=== PATIENT | male | born 1965 | race Caucasian/White ===

== ENCOUNTER 2021-01-29 13:23 | Outpatient (CLI) | payer OTHER | END 2021-01-29 23:59 | disposition home or self-care (01) | LOC: RAD 13:23 | PROVIDERS: ATTEND Registered Nurse Registered Nurse First Assistant | DX: M47.26 Other spondylosis with radiculopathy, lumbar region (principal); M48.061 Spinal stenosis, lumbar region without neurogenic claudication | CPT/HCPCS: 72110; 72148 ==